=== PATIENT | female | born 1930 | race Two or more races ===

== ENCOUNTER 2017-11-24 11:30 | Emergency (ER) | payer MEDICARE, OTHER ==
[~2017-11-24] VITALS: Ht 152.4 cm; Wt 63.5 kg
[2017-11-24 12:08] VITALS: BP 143/63
[2017-11-24 12:57] LABS: BASOPHILS % (AUTO) 0.6 % (0.0-2.0); EOSINOPHILS % (AUTO) 1.4 % (0.0-3.0); HEMATOCRIT 39.2 % (37.0-47.0); HEMOGLOBIN 12.8 G/DL (12.0-16.0); LYMPHOCYTES % (AUTO) 15.5 % (20.0-45.0); MEAN CORPUSCULAR VOLUME 95 FL (80-99); MONOCYTES % (AUTO) 7.2 % (1.0-10.0); NEUTROPHILS % (AUTO) 75.2 % (45.0-75.0); PLATELET COUNT 173 K/UL (150-450); RED BLOOD COUNT 4.14 M/UL (4.20-5.40); RED CELL DISTRIBUTION WIDTH 12.3 % (11.6-14.8); WHITE BLOOD COUNT 6.9 K/UL (4.8-10.8)
[2017-11-24 13:29] LABS: ANION GAP 11 mmol/L (5-15); BLOOD UREA NITROGEN 20 mg/dL (7-18); CALCIUM 9.2 MG/DL (8.5-10.1); CARBON DIOXIDE 28 MMOL/L (21-32); CHLORIDE 99 MMOL/L (98-107); CREATININE 0.8 MG/DL (0.55-1.30); POTASSIUM 3.3 MMOL/L (3.5-5.1); SODIUM 138 MMOL/L (136-145)
[2017-11-24 13:42] LABS: ALANINE AMINOTRANSFERASE 237 U/L (12-78); ALBUMIN 3.3 G/DL (3.4-5.0); ALBUMIN/GLOBULIN RATIO 0.8 (1.0-2.7); ALKALINE PHOSPHATASE 258 U/L (46-116); ASPARTATE AMINO TRANSFERASE 253 U/L (15-37); BILIRUBIN,TOTAL 2.3 MG/DL (0.2-1.0); CKMB 1.2 NG/ML (0.0-3.6); CREATINE KINASE 40 U/L (26-308)
[2017-11-24 13:43] LABS: BILIRUBIN,DIRECT 0.9 MG/DL (0.0-0.3)
--- NOTE | 2017-11-24 14:11 | Diagnostic Imaging Report ---
Indication: Shortness of breath Technique: One view of the chest Comparison: 09/08/2012 Findings: Infiltrates are seen diffusely throughout the left lung. There is probably some pleural fluid on the left, as well. No definite infiltrates are seen on the right. There is some central hilar vascular fullness on the right. The heart size is upper limits normal. Impression: Left lung infiltrates, likely pneumonia. Small left pleural effusion
[2017-11-24] MEDS ORDERED: Isovue-300 100ml vial INJ PRN (14:45)
[2017-11-24 14:57] LABS: APPEARANCE,URINE SLIGHTLY CLOUDY; BILIRUBIN, URINE 1+ (NEGATIVE); GLUCOSE, URINE (UA) NEGATIVE (NEGATIVE); KETONES,URINE 2+ (NEGATIVE); LEUKOCYTE ESTERASE ,URINE 3+ (NEGATIVE); NITRITE,URINE NEGATIVE (NEGATIVE); PH,URINE 5 (4.5-8.0); PROTEIN,URINE 1+ (NEGATIVE); UROBILINOGEN,URINE 4 MG/DL (0.0-1.0)
[2017-11-24 15:00] LABS: COLOR,URINE AMBER
[2017-11-24] MEDS ORDERED: cefTRIAXone 1 GM in NS 55 ML IVPB ONE (15:15)
[2017-11-24] MEDS ORDERED: AMOXICILLIN500 MG ORAL (15:17)
--- NOTE | 2017-11-24 15:42 | Emergency Room Report ---
History of Present Illness General Chief Complaint: General Complaint Source: Patient Present Illness HPI Patient is an 87-year-old female who presented after increased left-sided chest discomfort. Patient was sent in from primary care across the street. Patient was noted to have resolution of pain the patient stated that pain was present approximately 3 days ago which subsequently resolved. He denies any current symptoms. Patient had prior history of gallbladder disease and had previous noted stones to her gallbladder. Allergies: Coded Allergies: No Known Allergies (Unverified , 11/24/17) Patient History Past Medical History: see triage record Reviewed Nursing Documentation: PMH: Agreed; PSxH: Agreed Review of Systems All Other Systems: negative except mentioned in HPI Physical Exam Vital Signs Date Time Temp Pulse Resp B/P (MAP) Pulse Ox O2 Delivery O2 Flow Rate FiO2 11/24/17 11:42 97.9 83 20 141/63 96 Room Air 97.9 Sp02 EP Interpretation: reviewed, normal General Appearance: normal inspection, well appearing, no apparent distress, alert, GCS 15, Chronically Ill Head: atraumatic ENT: normal ENT inspection, hearing grossly normal, normal voice Neck: normal inspection, full range of motion, supple, no bony tend Respiratory: normal inspection, lungs clear, normal breath sounds, no respiratory distress, no retraction, no wheezing Cardiovascular #1: regular rate, rhythm, no edema Gastrointestinal: normal inspection, normal bowel sounds, non tender, soft, no guarding, no hernia Genitourinary: no CVA tenderness Musculoskeletal: normal inspection, back normal, normal range of motion Neurologic: normal inspection, alert, oriented x3, responsive, donor recruitment manager III-XII nml as tested, speech normal Psychiatric: normal inspection, judgement/insight normal, mood/affect normal Skin: normal inspection, normal color, no rash Medical Decision Making Diagnostic Impression: Primary Impression: 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 Because of complexity of patient's case laboratory testing and imaging studies were ordered. CT of the abdomen pelvis read by radiology showed large obstructing gallbladder stone. There is also noted to be a left pleural effusion which is moderate in size as well as a lung infiltrate. The patient was advised of these findings. The patient was advised that she should be admitted to the hospital however she stated that she wanted to go home and did not want to be admitted. The gallbladder findings are reportedly chronic and patient does not want surgical management. The patient was advised to return if she changed her mind about being admitted to the hospital. The patient was given IV Rocephin as well as prescriptions for oral antibiotics. The patient is advised to follow up with primary care doctor in 1-2 days. Patient is advised to return if any worsening condition or if any changes in status that are concerning. This report is dictated with [employer] street sprinkler software which may occasionally lead to discrepancies related to use of this software. Labs Test 11/24/17 12:20 11/24/17 14:26 White Blood Count 6.9 K/UL (4.8-10.8) Red Blood Count 4.14 M/UL (4.20-5.40) Hemoglobin 12.8 G/DL (12.0-16.0) Hematocrit 39.2 % (37.0-47.0) Mean Corpuscular Volume 95 FL (80-99) Mean Corpuscular Hemoglobin 31.0 PG (27.0-31.0) Mean Corpuscular Hemoglobin Concent 32.8 G/DL (32.0-36.0) Red Cell Distribution Width 12.3 % (11.6-14.8) Platelet Count 173 K/UL (150-450) Mean Platelet Volume 8.5 FL (6.5-10.1) Neutrophils (%) (Auto) 75.2 % (45.0-75.0) Lymphocytes (%) (Auto) 15.5 % (20.0-45.0) Monocytes (%) (Auto) 7.2 % (1.0-10.0) Eosinophils (%) (Auto) 1.4 % (0.0-3.0) Basophils (%) (Auto) 0.6 % (0.0-2.0) D-Dimer 3.19 mg/L FEU (0.00-0.49) Sodium Level 138 MMOL/L (136-145) Potassium Level 3.3 MMOL/L (3.5-5.1) Chloride Level 99 MMOL/L (98-107) Carbon Dioxide Level 28 MMOL/L (21-32) Anion Gap 11 mmol/L (5-15) Blood Urea Nitrogen 20 mg/dL (7-18) Creatinine 0.8 MG/DL (0.55-1.30) Estimat Glomerular Filtration Rate mL/min (>60) Glucose Level 121 MG/DL (74-106) Calcium Level 9.2 MG/DL (8.5-10.1) Total Bilirubin 2.3 MG/DL (0.2-1.0) Direct Bilirubin 0.9 MG/DL (0.0-0.3) Aspartate Amino Transf (AST/SGOT) 253 U/L (15-37) Alanine Aminotransferase (ALT/SGPT) 237 U/L (12-78) Alkaline Phosphatase 258 U/L (46-116) Total Creatine Kinase 40 U/L (26-308) Creatine Kinase MB 1.2 NG/ML (0.0-3.6) Creatine Kinase MB Relative Index 3.0 Troponin I 0.000 ng/mL (0.000-0.056) Total Protein 7.4 G/DL (6.4-8.2) Albumin 3.3 G/DL (3.4-5.0) Globulin 4.1 g/dL Albumin/Globulin Ratio 0.8 (1.0-2.7) Urine Color [place] Urine Appearance Slightly cloudy Urine pH 5 (4.5-8.0) Urine Specific [place] 1.010 (1.005-1.035) Urine Protein 1+ (NEGATIVE) Urine Glucose (UA) Negative (NEGATIVE) Urine Ketones 2+ (NEGATIVE) Urine Occult Blood 3+ (NEGATIVE) Urine Nitrite Negative (NEGATIVE) Urine Bilirubin 1+ (NEGATIVE) Urine Ictotest Negative Urine Urobilinogen 4 MG/DL (0.0-1.0) Urine Leukocyte Esterase 3+ (NEGATIVE) Urine RBC 2-4 /HPF (0 - 2) Urine WBC 20-30 /HPF (0 - 2) Urine Squamous Epithelial Cells Few /LPF (NONE/OCC) Urine Bacteria Few /HPF (NONE) EKG Diagnostic Results Rate: normal Rhythm: other - afib ST Segments: no acute changes Last Vital Signs Date Time Temp Pulse Resp B/P (MAP) Pulse Ox O2 Delivery O2 Flow Rate FiO2 11/24/17 12:08 97.9 84 20 143/63 96 Room Air 97.9 Status: improved Disposition: HOME, SELF-CARE Condition: Stable Scripts Amoxicillin* (AMOXIL*) 500 Mg Capsule 500 MG ORAL THREE TIMES A DAY, #21 CAP Prov: Gatito Herring MD 11/24/17 Patient Instructions: Cholelithiasis, Pleural Effusion, Community-Acquired Pneumonia, Adult Additional Instructions: Return if you change your mind about being admitted to the hospital. Gatito Herring MD November 24, 2017 15:42
[2017-11-24 15:56] VITALS: BP 143/63
--- NOTE | 2017-11-24 15:58 | Diagnostic Imaging Report ---
Clinical Indication: Abdominal pain Technique: No oral contrast utilized, per emergency room physician request IV administration nonionic contrast. Venous phase spiral acquisition obtained through the abdomen and pelvis. Multiplanar reconstructions were generated. Total dose length product 791.89 mGycm. CTDIvol(s) 15.7 mGy. Dose reduction achieved using automated exposure control Comparison: none Findings: Lack of enteric contrast limits assessment of the GI tract. There are multiple left lower quadrant ventral fat-containing hernia is noted. No evidence of diverticulosis or diverticulitis. 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 No small bowel distention no free or loculated intraperitoneal air or fluid is evident. Distal esophagus, stomach, duodenum are unremarkable. The gallbladder is equivocally mildly thick-walled. There is no pericholecystic inflammation, however. A rim calcification in the region of the gallbladder neck is noted. Uncertain as to whether this represents a peripherally calcified gallstone or focal calcification of the gallbladder wall. There is mild dilatation of the extrahepatic bile ducts, common bile duct measuring up to 10 mm in diameter. No definite downstream obstructive lesion is demonstrated. There is tapering of the common bile duct distally. There is also mild central intrahepatic biliary ductal dilatation. The liver is unremarkable. The pancreas is atrophic. The spleen, adrenals, right kidney are unremarkable. There is an accessory splenule. Left kidney demonstrates a 7 x 12 cm cyst coming off of the lower pole. No renal or ureteral calculi, hydronephrosis, or hydroureter. The bladder is unremarkable. The uterus demonstrates some calcifications, likely old degenerated fibroids. Adnexal structures are unremarkable. There is a 2 cm diameter area of cavitation with air and fluid in the left lower lobe within a larger area of infiltrate. Considerable atelectasis and consolidation is seen at the left lung base. There is a small to moderate left-sided pleural effusion. Multiple pulmonary nodules are seen at the right lung base, measuring up to 9 mm in diameter. There is also suggestion of multiple nodules in the left lung, although these are largely obscured by the surrounding infiltrates. The heart is enlarged with four-chamber cardiomegaly. There is anterior offset of L4 on L5. There is degenerative spondylosis in general, and in particular at L5-S1. Impression: 2 cm area of cavitation in the left lower lobe, within a larger area of infiltrate. This could indicate necrotic pneumonia, necrotic neoplasm, or a cavitating inflammatory mass Fairly extensive left lower lobe consolidation and atelectasis Multiple pulmonary nodules in the included right lower lobe and probably the left lung base. While possibly postinflammatory in nature, the possibility of multifocal metastatic deposits should be considered Small to moderate left-sided pleural effusion Limited assessment of the GI tract, given the absence of IV contrast administration Possible gallbladder neck stone. Mildly distended and borderline thick walled gallbladder, equivocal but could indicate acute cholecystitis. Recommend further evaluation with sonography as clinically indicated Mild extrahepatic and central intrahepatic biliary ductal dilatation. No definite downstream obstructive lesion, but occult obstruction cannot excluded. Recommend correlation with liver function tests. Cardiomegaly Other findings as noted, including degenerative uterine fibroids, degenerative spondylosis, atrophic pancreas The CT scanner at [facility] is accredited by the [employer] and the scans are performed using protocols designed to limit radiation exposure to as low as reasonably achievable to attain images of sufficient resolution adequate for diagnostic evaluation.
--- NOTE | 2017-11-25 16:45 | Cardiology Report ---
APPROVED REPORT EKG Measurement Heart [id number] Atrial fibrillation Nonspecific ST and T wave abnormality Prolonged QT Abnormal ECG
== END 2017-11-24 15:56 | disposition home or self-care (01) ==
LOC: EMR 12:09
DX: K80.50 Calculus of bile duct without cholangitis or cholecystitis without obstruction (principal); J90 Pleural effusion, not elsewhere classified; J18.9 Pneumonia, unspecified organism; N28.1 Cyst of kidney, acquired; M47.816 Spondylosis without myelopathy or radiculopathy, lumbar region; R91.8 Other nonspecific abnormal finding of lung field
CPT/HCPCS: 36415; 71045; 74177; 80053; 81003; 82248; 82550; 82553; 84484; 85025; 85379; 87040; 87086; 93005; 96374; 99284; J0696; Q9967